=== PATIENT | male | born 1985 | race African-American/Black ===

== ENCOUNTER 2017-07-25 19:10 | Emergency (ER) | payer SELFPAY ==
[2017-07-25 19:44] LABS: ADD MAN DIFF? NO
[2017-07-25 19:47] LABS: WHITE BLOOD COUNT 8.8 10^3/ul (4.8-10.8)
[2017-07-25 19:47] LABS: BASOPHILS % 0.3 % (0.0-2.0); EOSINOPHILS # 0.1 10^3/ul (0.0-0.5); EOSINOPHILS % 1.5 % (0.0-7.0); HEMATOCRIT 46.8 % (42.0-52.0); HEMOGLOBIN 16.5 g/dl (14.0-18.0); LYMPHOCYTES # 3.2 10^3/ul (0.8-2.9); LYMPHOCYTES % 36.6 % (15.0-51.0); MEAN CORPUSCULAR HEMOGLOBIN 30.8 pg (29.0-33.0); MEAN CORPUSCULAR HGB CONC 35.3 g/dl (32.0-37.0); MEAN CORPUSCULAR VOLUME 87.3 fl (82.0-101.0); MEAN PLATELET VOLUME 8.5 fl (7.4-10.4); MONOCYTE # 0.7 10^3/ul (0.3-0.9); MONOCYTES % 7.9 % (0.0-11.0); NEUTROPHIL # 4.7 10^3/ul (1.6-7.5); NEUTROPHILS % 53.4 % (39.0-77.0); PLATELET COUNT 307 10^3/UL (140-415); RED BLOOD COUNT 5.36 10^6/ul (4.70-6.10); RED CELL DISTRIBUTION WIDTH 12.7 % (11.5-14.5)
[2017-07-25] MEDS: LORAZEPAM 1 MG TAB PO (19:49)
[2017-07-25 20:11] LABS: ANION GAP 18 (8-16); BLOOD UREA NITROGEN 14 mg/dl (7-20); CALCIUM 10.4 mg/dl (8.4-10.2); CARBON DIOXIDE 27 mmol/L (21-31); CHLORIDE 100 mmol/L (97-110); CREATININE 0.84 mg/dl (0.61-1.24); GLUCOSE 87 mg/dl (70-220); SODIUM 141 mmol/L (135-144)
[2017-07-25 20:25] LABS: TROPONIN-I < 0.012 ng/ml (0.00-0.12)
[2017-07-25] MEDS ORDERED: NITROGLYCERIN (SL) 0.4 MG TAB SL (21:00)
[2017-07-25] MEDS ORDERED: ZOLPIDEM 5 MG TAB PO (21:30)
[2017-07-25] MEDS ORDERED: ONDANSETRON 4 MG INJ IV ×2 (21:30)
[2017-07-25] MEDS ORDERED: ACETAMINOPHEN 325 MG TAB PO ×2 (21:30)
[2017-07-25] MEDS ORDERED: NACL 0.9% 3 ML SYG IV (21:30)
[2017-07-25] MEDS ORDERED: morphine 2 MG INJ IV (21:30)
[2017-07-25] MEDS: ASPIRIN 81 MG TAB PO (21:45)
[2017-07-25] MEDS: NITROGLYCERIN 2% 1 GM OINT PKT TD (21:47)
[2017-07-25] MEDS: DEXTROSE 5%-0.45% NACL 1,000 ML IV (21:50)
[2017-07-26 02:06] LABS: LIPASE 61 U/L (23-300)
[2017-07-26] MEDS ORDERED: ENOXAPARIN 40 MG/0.4 ML SYG SC (09:00)
== END 2017-07-25 23:26 | disposition home or self-care (01) ==
LOC: E/R 19:10
DX: R06.02 Shortness of breath (principal); F17.210 Nicotine dependence, cigarettes, uncomplicated
CPT/HCPCS: 36415; 71010; 80048; 83690; 84443; 84484; 85025; 93005; 99285-25

== ENCOUNTER 2018-01-22 22:19 | Emergency (ER) | payer OTHER ==
[2018-01-22 23:58] LABS: ADD MAN DIFF? NO
[2018-01-22 23:59] LABS: WHITE BLOOD COUNT 10.5 10^3/ul (4.8-10.8)
[2018-01-22 23:59] LABS: BASOPHILS % 0.3 % (0.0-2.0); EOSINOPHILS # 0.1 10^3/ul (0.0-0.5); EOSINOPHILS % 1.2 % (0.0-7.0); HEMATOCRIT 45.8 % (42.0-52.0); HEMOGLOBIN 16.1 g/dl (14.0-18.0); LYMPHOCYTES # 2.2 10^3/ul (0.8-2.9); MEAN CORPUSCULAR HGB CONC 35.2 g/dl (32.0-37.0); MEAN CORPUSCULAR VOLUME 88.1 fl (82.0-101.0); MEAN PLATELET VOLUME 8.7 fl (7.4-10.4); MONOCYTE # 0.7 10^3/ul (0.3-0.9); MONOCYTES % 6.6 % (0.0-11.0); NEUTROPHIL # 7.4 10^3/ul (1.6-7.5); NEUTROPHILS % 70.5 % (39.0-77.0); PLATELET COUNT 253 10^3/UL (140-415); RED CELL DISTRIBUTION WIDTH 12.8 % (11.5-14.5)
[2018-01-23 00:20] LABS: ALANINE AMINOTRANSFERASE 46 IU/L (13-69); ALBUMIN 4.2 g/dl (3.3-4.9); ALKALINE PHOSPHATASE 73 IU/L (42-121); ASPARTATE AMINO TRANSFERASE 30 IU/L (15-46); BILIRUBIN,INDIRECT 0.3 mg/dl (0-1.1); BILIRUBIN,TOTAL 0.3 mg/dl (0.2-1.3); TOTAL PROTEIN 7.4 g/dl (6.1-8.1)
[2018-01-23 00:52] LABS: HEPATITIS B SURFACE ANTIGEN NEGATIVE (NEGATIVE)
[2018-01-23 01:02] LABS: HIV 1&2 ANTIBODY NEGATIVE (NEGATIVE)
[2018-01-23 01:09] LABS: HEPATITIS C VIRAL ANTIBODY NEGATIVE (NEGATIVE)
[2018-01-23 01:10] LABS: HEPATITIS B SURFACE ANTIBODY POSITIVE (NEGATIVE)
== END 2018-01-23 01:00 | disposition home or self-care (01) ==
LOC: E/R 22:19
DX: R55 Syncope and collapse (principal); Z87.891 Personal history of nicotine dependence
CPT/HCPCS: 80076; 85025; 86703; 86706; 86803; 87340; 99283